=== PATIENT | male | born 1990 | race Caucasian/White ===

== ENCOUNTER 2020-01-28 01:32 | Emergency (ER) | payer SELFPAY ==
[~2020-01-28] VITALS: Ht 172.7 cm; Wt 93.0 kg
--- NOTE | 2020-01-28 01:55 | NUR ---
PATIENT CAME TO ER BED 8 C/O SOB SINCE 2x HOURS AGO [employer]ICE WHEN HE WAS LYING IN HIS BED. PATIENT STATES THAT HE WAS ANXIOUS AND DECIDED TO COME TO THE ER. PATIENT IS [id number]. PATIENT IS BREATHING EVENLY AND UNLABORED ON ROOM AIR AT 100%. CONNECTED TO MONITOR.
[2020-01-28] MEDS ORDERED: ALBUTEROL FS 2.5 MG/3 ML VIAL.NEB NEB ONE (02:00)
[2020-01-28] MEDS ORDERED: LORAZEPAM 1 MG TABLET PO ONE (02:00)
[2020-01-28] MEDS ORDERED: IPRATROPIUM NEB FS 0.5 MG/2.5 ML AMPUL.NEB NEB ONE (02:00)
[2020-01-28] MEDS ORDERED: LORAZEPAM 0.5 MG TABLET ONE (02:01)
[2020-01-28] MEDS ORDERED: ALBUTEROL FS 2.5 MG/3 ML VIAL.NEB ONE (02:08)
[2020-01-28] MEDS ORDERED: IPRATROPIUM NEB FS 0.5 MG/2.5 ML AMPUL.NEB ONE (02:09)
--- NOTE | 2020-01-28 03:22 | NUR ---
PATIENT STATES, "I CAN BREATHE MUCH CLEARER NOW". MD NOTIFIED.
--- NOTE | 2020-01-28 03:46 | NUR ---
PT MEDICALLY STABLE FOR D/C. REPORTED FEELING MUCH BETTER. Patient discharged to home in stable condition. Written and verbal after care instructions given. Patient verbalizes understanding of instruction. PT INSTRUCTED NOT TO DRIVE. GIRL FRIEND WILL PROVIDE RIDE TO THE PT.
[2020-01-28 03:47] VITALS: BP 133/68
== END 2020-01-28 03:48 | disposition home or self-care (01) ==
LOC: ER 01:35
DX: J45.909 Unspecified asthma, uncomplicated (principal); Z91.013 Allergy to seafood